=== PATIENT | female | born 1940 | race Caucasian/White ===

== ENCOUNTER 2017-01-10 14:28 | Outpatient (CLI) | payer MEDICARE, BC ==
--- NOTE | 2017-01-10 16:54 | MMO ---
BILATERAL SCREENING MAMMOGRAMS: DATE: 01/10/2017 COMPARISON: Exams of 2014 and 2016. This patient's mammogram was interpreted with the assistance of computer-aided detection. FINDINGS: Scattered fibroglandular densities. There are scattered benign-appearing calcifications. Tiny 4 mm nodule in the lower inner right breast is stable. No interval change. IMPRESSION: BI-RADS 2: Benign findings. Recommend one year follow-up. POS: [facility]
== END 2017-01-10 14:29 | disposition home or self-care (01) ==
LOC: MAMMO 14:28
PROVIDERS: ATTEND Obstetrics & Gynecology
DX: Z12.31 Encounter for screening mammogram for malignant neoplasm of breast (principal)
CPT/HCPCS: 77067; G0202

== ENCOUNTER 2018-01-12 13:40 | Outpatient (CLI) | payer MEDICARE, BC | END 2018-01-12 13:41 | disposition home or self-care (01) | LOC: BICMAMMO 13:40 | PROVIDERS: ATTEND Obstetrics & Gynecology | DX: Z12.31 Encounter for screening mammogram for malignant neoplasm of breast (principal); Z80.3 Family history of malignant neoplasm of breast | CPT/HCPCS: 77063; 77067 ==

== ENCOUNTER 2019-01-14 08:45 | Outpatient (CLI) | payer MEDICARE, BC ==
--- NOTE | 2019-01-14 09:30 | MMO ---
Bilateral MAMMO Bilat Screen [facility]. CLINICAL HISTORY: Patient is 78 years old and is seen for screening. The patient has the following family history of breast cancer: 2 maternal aunts. The patient has no personal history of cancer. VIEWS: The views performed were: bilateral craniocaudal with tomosynthesis and bilateral mediolateral oblique with tomosynthesis. FILMS COMPARED: The present examination has been compared to prior imaging studies performed at [facility] on 12/15/2014, 12/17/2015, 01/10/2017 and 01/12/2018. This study has been interpreted with the assistance of computer-aided detection. MAMMOGRAM FINDINGS: There are scattered fibroglandular densities. There are stable benign appearing calcifications seen in both breasts. There are no suspicious masses, suspicious calcifications, or new areas of architectural distortion. IMPRESSION: THERE IS NO MAMMOGRAPHIC EVIDENCE OF MALIGNANCY. A ROUTINE FOLLOW-UP MAMMOGRAM IN 1 YEAR IS RECOMMENDED. THE RESULTS OF THIS EXAM WERE SENT TO THE PATIENT. ACR BI-RADS Category 2 - Benign finding MAMMOGRAPHY NOTE: 1. A negative mammogram report should not delay a biopsy if a dominant of clinically suspicious mass is present. 2. Approximately 10% to 15% of breast cancers are not detected by mammography. 3. Adenosis and dense breasts may obscure an underlying neoplasm. Reported by: NIGEL SINGH MD Electonically Signed: [id number]
== END 2019-01-14 08:46 | disposition home or self-care (01) ==
LOC: BICMAMMO 08:45
PROVIDERS: ATTEND Obstetrics & Gynecology
DX: Z12.31 Encounter for screening mammogram for malignant neoplasm of breast (principal); Z80.3 Family history of malignant neoplasm of breast
CPT/HCPCS: 77063; 77067

== ENCOUNTER 2020-01-16 09:25 | Outpatient (CLI) | payer MEDICARE, BC ==
--- NOTE | 2020-01-16 10:02 | MMO ---
Bilateral MAMMO Bilat Screen [facility]. CLINICAL HISTORY: Patient is 79 years old and is seen for screening. The patient has the following family history of breast cancer: 2 maternal aunts. The patient has no personal history of cancer. VIEWS: The views performed were: bilateral craniocaudal with tomosynthesis and bilateral mediolateral oblique with tomosynthesis. FILMS COMPARED: The present examination has been compared to prior imaging studies performed at [facility] on 12/17/2015, 01/10/2017, 01/12/2018 and 01/14/2019. This study has been interpreted with the assistance of computer-aided detection. MAMMOGRAM FINDINGS: There are scattered fibroglandular densities. Finding 1: There is a stable focal asymmetry seen in the right breast. Finding 2: There are stable benign appearing calcifications seen in both breasts. There are no suspicious masses, suspicious calcifications, or new areas of architectural distortion. IMPRESSION: THERE IS NO MAMMOGRAPHIC EVIDENCE OF MALIGNANCY. A ROUTINE FOLLOW-UP MAMMOGRAM IN 1 YEAR IS RECOMMENDED. THE RESULTS OF THIS EXAM WERE SENT TO THE PATIENT. ACR BI-RADS Category 2 - Benign finding MAMMOGRAPHY NOTE: 1. A negative mammogram report should not delay a biopsy if a dominant of clinically suspicious mass is present. 2. Approximately 10% to 15% of breast cancers are not detected by mammography. 3. Adenosis and dense breasts may obscure an underlying neoplasm. Reported by: NIGEL SINGH MD Electonically Signed: [id number]
== END 2020-01-16 09:26 | disposition home or self-care (01) ==
LOC: BICMAMMO 09:25
PROVIDERS: ATTEND Obstetrics & Gynecology
DX: Z12.31 Encounter for screening mammogram for malignant neoplasm of breast (principal); Z80.3 Family history of malignant neoplasm of breast
CPT/HCPCS: 77063; 77067

== ENCOUNTER 2021-01-18 09:06 | Outpatient (CLI) | payer MEDICARE, BC | END 2021-01-18 09:07 | disposition home or self-care (01) | LOC: BICMAMMO 09:06 | PROVIDERS: ATTEND Student in an Organized Health Care Education/Training Program | DX: Z12.31 Encounter for screening mammogram for malignant neoplasm of breast (principal); Z80.3 Family history of malignant neoplasm of breast | CPT/HCPCS: 77063; 77067 ==

== ENCOUNTER 2022-02-22 13:18 | Outpatient (CLI) | payer MEDICARE, BC | END 2022-02-22 13:19 | disposition home or self-care (01) | LOC: BICMAMMO 13:18 | PROVIDERS: ATTEND Student in an Organized Health Care Education/Training Program | DX: Z12.31 Encounter for screening mammogram for malignant neoplasm of breast (principal); R92.1 Mammographic calcification found on diagnostic imaging of breast; Z80.3 Family history of malignant neoplasm of breast | CPT/HCPCS: 77063; 77067 ==

== ENCOUNTER 2022-08-04 09:05 | Outpatient (CLI) | payer MEDICARE, BC | END 2022-08-04 09:06 | disposition home or self-care (01) | LOC: RAD 09:05 | PROVIDERS: ATTEND Internal Medicine Critical Care Medicine | DX: R06.00 Dyspnea, unspecified (principal); J90 Pleural effusion, not elsewhere classified | CPT/HCPCS: 71046 ==

== ENCOUNTER 2022-08-18 08:24 | Day surgery (SDC) | payer MEDICARE, BC ==
[2022-08-18 08:48] LABS: #Eosinphils 0.1 thou/uL (0.0-0.7); #Monocytes 0.6 thou/uL (0.11-0.59); #Neutrophils 3.3 thou/uL (1.40-6.50); %Basophils 0.2 % (0.0-1.0); %Eosinophils 2.3 % (0.0-10.0); %Lymphocytes 22.6 % (21.0-51.0); %Monocytes 12.2 % (0.0-10.0); %Neutrophils 62.3 % (42.0-75.0); Hemoglobin 13.1 g/dL (12.0-16.0); Mean Corpuscular HGB CONC 31.8 g/dL (32.0-36.0); Mean Corpuscular Hemoglobin 27.5 pg (27.0-31.0); Mean Corpuscular Volume 86.4 fl (78.0-98.0); Mean Platelet Volume 9.1 fL (7.4-10.4); Platelet Count 257 10x3/uL (130-400); Red Blood Cell (RBC) Count 4.77 mill/uL (4.20-5.40); White Blood Cell (WBC) Count 5.3 10x3/uL (4.8-10.8)
[2022-08-18 09:00] LABS: INR-International Normal Ratio 1.1; PTT 30.2 sec (22.9-36.1); Prothrombin Time 14.3 sec (12.0-14.7)
[2022-08-18 09:51] VITALS: BP 133/68; TEMP 98.7
== END 2022-08-18 15:00 | disposition home or self-care (01) ==
LOC: CT 08:24
PROVIDERS: ATTEND Internal Medicine Critical Care Medicine
DX: C34.92 Malignant neoplasm of unspecified part of left bronchus or lung (principal); J90 Pleural effusion, not elsewhere classified; R91.8 Other nonspecific abnormal finding of lung field; I10 Essential (primary) hypertension; E78.5 Hyperlipidemia, unspecified; F41.9 Anxiety disorder, unspecified; K57.92 Diverticulitis of intestine, part unspecified, without perforation or abscess without bleeding; E21.3 Hyperparathyroidism, unspecified; Z90.89 Acquired absence of other organs; Z88.2 Allergy status to sulfonamides; Z88.0 Allergy status to penicillin; Z88.1 Allergy status to other antibiotic agents; Z88.6 Allergy status to analgesic agent; Z91.041 Radiographic dye allergy status; Z88.8 Allergy status to other drugs, medicaments and biological substances; Z79.899 Other long term (current) drug therapy
CPT/HCPCS: 32408; 71045; 77002; 85025; 85610; 85730; 88305; 88333; 88341; 88342

== ENCOUNTER 2022-10-04 12:50 | Outpatient (CLI) | payer MEDICARE, BC | END 2022-10-04 12:51 | disposition home or self-care (01) | LOC: CT 12:50 | PROVIDERS: ATTEND Nurse Practitioner Family | DX: C45.9 Mesothelioma, unspecified (principal); R91.8 Other nonspecific abnormal finding of lung field; J90 Pleural effusion, not elsewhere classified; J98.11 Atelectasis; R91.1 Solitary pulmonary nodule | CPT/HCPCS: 71250 ==

== ENCOUNTER 2022-10-06 08:52 | Outpatient (CLI) | payer MEDICARE, BC | END 2022-10-06 08:53 | disposition home or self-care (01) | LOC: ULT 08:52 | PROVIDERS: ATTEND Surgery | DX: Z01.818 Encounter for other preprocedural examination (principal); C45.0 Mesothelioma of pleura; R06.02 Shortness of breath | CPT/HCPCS: 93970 ==

== ENCOUNTER 2022-12-06 07:27 | Outpatient (CLI) | payer MEDICARE, BC | END 2022-12-06 07:28 | disposition home or self-care (01) | LOC: CT 07:27 | PROVIDERS: ATTEND Internal Medicine Hematology & Oncology | DX: C34.82 Malignant neoplasm of overlapping sites of left bronchus and lung (principal); J91.8 Pleural effusion in other conditions classified elsewhere; R16.1 Splenomegaly, not elsewhere classified; Z98.890 Other specified postprocedural states | CPT/HCPCS: 71260; 74160 ==

== ENCOUNTER 2023-03-10 07:47 | Outpatient (CLI) | payer MEDICARE ==
[2023-03-10] MEDS ORDERED: Iopamidol 370 76% 100 ML VIAL ONE (11:49)
== END 2023-03-10 07:48 | disposition home or self-care (01) ==
LOC: CT 07:47
PROVIDERS: ATTEND Internal Medicine Hematology & Oncology
DX: C34.82 Malignant neoplasm of overlapping sites of left bronchus and lung (principal); K57.30 Diverticulosis of large intestine without perforation or abscess without bleeding; K76.89 Other specified diseases of liver; J94.8 Other specified pleural conditions; R16.1 Splenomegaly, not elsewhere classified; Z98.890 Other specified postprocedural states
CPT/HCPCS: 71260; 74160; 82565

== ENCOUNTER 2023-05-01 | Outpatient (CLI) | payer MEDICARE | END 2023-05-01 13:56 | disposition home or self-care (01) | DX: Z12.31 Encounter for screening mammogram for malignant neoplasm of breast (principal); Z80.3 Family history of malignant neoplasm of breast; Z85.89 Personal history of malignant neoplasm of other organs and systems ==

== ENCOUNTER 2023-07-14 10:44 | Outpatient (CLI) | payer MEDICARE | END 2023-07-14 10:45 | disposition home or self-care (01) | LOC: CT 10:44 | PROVIDERS: ATTEND Internal Medicine Hematology & Oncology | DX: C34.82 Malignant neoplasm of overlapping sites of left bronchus and lung (principal) | CPT/HCPCS: 71250; 74177 ==

== ENCOUNTER 2023-11-08 08:42 | Outpatient (CLI) | payer MEDICARE | END 2023-11-08 08:43 | disposition home or self-care (01) | LOC: RAD 08:42 | PROVIDERS: ATTEND Internal Medicine Critical Care Medicine | DX: R06.00 Dyspnea, unspecified (principal) | CPT/HCPCS: 71046 ==

== ENCOUNTER 2023-11-29 09:03 | Outpatient (CLI) | payer MEDICARE | END 2023-11-29 09:04 | disposition home or self-care (01) | LOC: CT 09:03 | PROVIDERS: ATTEND Internal Medicine Hematology & Oncology | DX: C34.82 Malignant neoplasm of overlapping sites of left bronchus and lung (principal); N20.0 Calculus of kidney; K76.89 Other specified diseases of liver; J94.8 Other specified pleural conditions | CPT/HCPCS: 71260 ==

== ENCOUNTER 2024-03-22 12:32 | Outpatient (CLI) | payer MEDICARE | END 2024-03-22 12:33 | disposition home or self-care (01) | LOC: CT 12:32 | PROVIDERS: ATTEND Internal Medicine Hematology & Oncology | DX: C34.82 Malignant neoplasm of overlapping sites of left bronchus and lung (principal); D50.0 Iron deficiency anemia secondary to blood loss (chronic); D51.8 Other vitamin B12 deficiency anemias | CPT/HCPCS: 71250; 74150 ==